=== PATIENT | female | born 1975 | race Caucasian/White ===

== ENCOUNTER → 2021-08-15 09:31 | Outpatient (BNVA) | payer MEDICARE, SELFPAY | PROVIDERS: PCP Nurse Practitioner Family; Visit Provider Nurse Practitioner Family | DX: E13.9 Other specified diabetes mellitus without complications (principal); E55.9 Vitamin D deficiency, unspecified; F41.9 Anxiety disorder, unspecified; F32.A Depression, unspecified; Z13.6 Encounter for screening for cardiovascular disorders | CPT/HCPCS: 80053; 80061; 81003; 82306; 83036; 84443; 85025 ==

== ENCOUNTER → 2023-03-11 09:38 | Outpatient (BNVA) | payer MEDICARE, SELFPAY | PROVIDERS: PCP Family Medicine; Visit Provider Nurse Practitioner | DX: E11.9 Type 2 diabetes mellitus without complications (principal); E78.5 Hyperlipidemia, unspecified; F41.9 Anxiety disorder, unspecified | CPT/HCPCS: 80053; 80061; 83036; 84443; 85025 ==

== ENCOUNTER → 2023-08-25 09:15 | Outpatient (BNVA) | payer MEDICARE, SELFPAY | PROVIDERS: PCP Family Medicine; Referring Provider Nurse Practitioner; Visit Provider Internal Medicine | DX: R00.2 Palpitations (principal) | CPT/HCPCS: 93246 ==

== ENCOUNTER → 2024-04-01 08:41 | Outpatient (BNVA) | payer MEDICARE, SELFPAY | PROVIDERS: PCP Nurse Practitioner Family; Visit Provider Nurse Practitioner Family | DX: E13.9 Other specified diabetes mellitus without complications (principal); E11.9 Type 2 diabetes mellitus without complications | CPT/HCPCS: 80048; 80061; 81000; 83036; 85025 ==

== ENCOUNTER → 2024-07-04 11:48 | Outpatient (BNVA) | payer MEDICARE, SELFPAY | PROVIDERS: PCP Nurse Practitioner Family; Visit Provider Internal Medicine | DX: E13.9 Other specified diabetes mellitus without complications; E78.5 Hyperlipidemia, unspecified; Z79.4 Long term (current) use of insulin | CPT/HCPCS: 99214; 99215 ==

== ENCOUNTER 2024-08-15 08:29 | Outpatient (CLI) | payer MEDICARE, SELFPAY ==
[2024-08-15 09:20] LABS: Estmated Average Glucose 235; Hemoglobin A1C 9.8 % (4.0-6.0)
[2024-08-15 09:26] LABS: Alanine Aminotransferase 19 U/L (0-33); Alkaline Phosphatase 77 U/L (35-105); Aspartate Amino Transferase 18 U/L (0-32); Blood Urea Nitrogen 11 mg/dL (6-20); Calcium 8.9 mg/dL (8.5-10.5); Carbon Dioxide 23 mmol/L (22-29); Chloride 101 mmol/L (98-107); Chol HDL Ratio 3.47 mg/dL (0.0-4.40); Cholesterol 264 mg/dL (0-200); Globulin 3.1 g/dL (1.3-4.6); Glomerular Filtration Rate 107.2 mL/min (90-130); Glucose 173 mg/dL (65-115); HDL Cholesterol 76 mg/dL (60-100); LDL Cholesterol Calculated 174 mg/dL (50-129); LDL HDL Ratio 2.29 RATIO (0.00-3.22); Osmolality Calculated 280 mOsm/kg (285-295); Sodium 133 mmol/L (136-145); Total Bilirubin 0.4 mg/dL (0.15-1.2); Total Protein 7.1 g/dL (6.6-8.7); Triglycerides 68 mg/dL (0-150)
[2024-08-16 12:15] LABS: C-Peptide 0.19 ng/mL (0.80-3.85)
== END 2024-08-15 08:30 | disposition home or self-care (01) ==
LOC: LAB 08:30
PROVIDERS: PCP Nurse Practitioner Family; Visit Provider Internal Medicine
DX: E11.9 Type 2 diabetes mellitus without complications (principal); E78.5 Hyperlipidemia, unspecified
CPT/HCPCS: 36415; 80053; 80061; 83036; 84681; 86337; 86341

== ENCOUNTER → 2024-10-05 10:31 | Outpatient (BNVA) | payer MEDICARE, SELFPAY | PROVIDERS: PCP Nurse Practitioner Family; Visit Provider Internal Medicine | DX: K86.1 Other chronic pancreatitis (principal); E13.9 Other specified diabetes mellitus without complications; E78.5 Hyperlipidemia, unspecified; Z79.4 Long term (current) use of insulin | CPT/HCPCS: 99214 ==

== ENCOUNTER → 2024-11-18 12:30 | Outpatient (BNVA) | payer MEDICARE, SELFPAY | PROVIDERS: PCP Nurse Practitioner Family; Visit Provider Internal Medicine | DX: E13.9 Other specified diabetes mellitus without complications; E78.5 Hyperlipidemia, unspecified | CPT/HCPCS: 99214 ==

== ENCOUNTER → 2025-02-10 09:46 | Outpatient (BNVA) | payer MEDICARE, SELFPAY | PROVIDERS: PCP Nurse Practitioner Family; Visit Provider Internal Medicine | DX: E13.9 Other specified diabetes mellitus without complications (principal); E78.5 Hyperlipidemia, unspecified; J30.89 Other allergic rhinitis; K86.1 Other chronic pancreatitis | CPT/HCPCS: 99214 ==

== ENCOUNTER 2025-05-05 08:15 | Outpatient (CLI) | payer MEDICARE, SELFPAY ==
[2025-05-05 09:38] LABS: Creatinine Urine, Random 63 mg/dL (28-217)
[2025-05-05 09:40] LABS: Microalbum Creatinine Ratio Ur 79 mg/dL (0-20)
[2025-05-05 10:11] LABS: Alanine Aminotransferase 24 U/L (0-33); Albumin Level 4.1 g/dL (3.5-5.2); Alkaline Phosphatase 99 U/L (35-105); Aspartate Amino Transferase 21 U/L (0-32); Blood Urea Nitrogen 15 mg/dL (6-20); Calcium 9.2 mg/dL (8.5-10.5); Carbon Dioxide 22 mmol/L (22-29); Chloride 101 mmol/L (98-107); Cholesterol 260 mg/dL (0-200); Globulin 3.4 g/dL (1.3-4.6); Glucose 257 mg/dL (65-115); HDL Cholesterol 96 mg/dL (60-100); Osmolality Calculated 294 mOsm/kg (285-295); Sodium 137 mmol/L (136-145); Total Protein 7.5 g/dL (6.6-8.7); Triglycerides 64 mg/dL (0-150)
[2025-05-05 10:13] LABS: Anion Gap 18.4 (5-19); Potassium 4.4 mmol/L (3.5-5.1)
[2025-05-05 11:15] LABS: Estmated Average Glucose 206; Hemoglobin A1C 8.8 % (4.0-6.0)
== END 2025-05-05 08:16 | disposition home or self-care (01) ==
PROVIDERS: PCP Nurse Practitioner Family; Visit Provider Internal Medicine
DX: E78.5 Hyperlipidemia, unspecified (principal); E13.9 Other specified diabetes mellitus without complications; J30.89 Other allergic rhinitis; K86.1 Other chronic pancreatitis; L25.9 Unspecified contact dermatitis, unspecified cause
CPT/HCPCS: 36415; 80053; 80061; 82044; 83036

== ENCOUNTER 2025-05-13 19:05 | Emergency (ER) | payer MEDICARE, SELFPAY ==
[2025-05-13 19:08] VITALS: BP 203/68; PULSE 74; RESP 16; TEMP 36.8; O2SAT 97; BMI 31.6
--- OUTSIDE RECORDS SUMMARY | 2025-05-13 19:15 | XMS_ITS | Clinical Summary ---
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 Gender Identity Not on file Sexual Orientation Not on file Plan of Treatment Health Maintenance Due Date Last Done Comments Medicare Annual Wellness 1977 Hepatitis B Vaccines (1 of 3 - 19+ 3-dose series) 1996 Pneumococcal Vaccine: Pediat rics (0 to 5 Years) and At-Risk Patients (6 to 49 Years) (1 of 2 - PCV) 1996 Td, Tdap Vaccines Adult 1996 Pap Smear 1998 Mammogram 2017 Colonoscopy 2022 Influenza Vaccination (#1) 2025 HIB Vaccines Aged Out No longer eligi ble based on patient's age to complete this topic HPV Vaccines Aged Out No longer eligi ble based on patient's age to complete this topic Hepatitis A Vaccines Aged Out No long er eligible based on patient's age to complete this topic IPV Vaccines Aged Out No longer eligi ble based on patient's age to complete this topic Meningococcal Vaccines Aged Out No lo nger eligible based on patient's age to complete this topic RSV Mab Nirsevimab (Beyfortu s) <20 months Aged Out No longer eligible b ased on patient's age to complete this topic Rotavirus Vaccines Aged Out No longer eligible based on patient's age to complete this topic Insurance [facility]
--- OUTSIDE RECORDS SUMMARY | 2025-05-13 19:15 | XMS_ITS | Clinical Summary ---
Author Organization [facility] Address [address] [address] Phone Care Team Providers Care Test Tech Name Role Phone Unavailable Primary Care Provider Unavailabl e Allergies Active Allergy Reactions Criticality Noted Date Comments Sulfa (Sulfonamide Antibiotics) Other (See Comments) 06/02/2021 Mouth ulcers Medications diphenhydrAMINE (Benadryl Allergy) 12.5 mg/5 mL solution Benadryl Allergy Act isaak cetirizine (ZyrTEC) 10 mg tablet every 24 hours. Acti ve insulin aspart U-100 (NovoLOG U-100 Insulin aspart) 100 unit/mL vial Novolog U-100 Insulin aspart 100 unit/mL subcutaneous solution Active pantoprazole (PROTONIX) 40 mg Tablet, Delayed Release (E.C.) pantoprazole 40 mg tablet,delayed release Active Active Problems Problem Noted Date Diagnosed Date Type 1 diabetes mellitus 07/28/2018 Social History Tobacco Use Types Packs/Day Years Used Date Smoking Tobacco: Never Passive Smoke Exposure: Never Smokeless Tobacco: Never Tobacco Cessation:Counseling Given: No Alcohol Use Standard Drinks/Week Comments Never 0 (1 standard drink = 0.6 oz pur e alcohol) Comments No Sex and Gender Information Value Date Recorded Sex Assigned at Not on file Legal Sex Female 11:09 AM CDT Gender Identity Not on file Sexual Orientation Not on file Last Filed Vital Signs Vital Sign Reading Time Taken Comments Blood Pressure 160/68 06/24/2023 1:50 PM CDT Pulse 60 06/24/2023 1:33 PM CDT Temperature 36.9 C (98.5 F) 06/24/2023 1:33 PM CDT Respiratory Rate 18 06/24/2023 1:33 PM CDT Oxygen Saturation 100% 06/24/2023 1:33 PM CDT Inhaled Oxygen Concentration - - Weight 87.7 kg (193 lb 6.4 oz) 06/24/2023 1:33 P M CDT Height 161.3 cm (5' 3.5 ) 06/24/2023 1:33 PM CDT Body Mass Index 33.72 06/24/2023 1:33 PM CDT Plan of Treatment Health Maintenance Due Date Last Done Comments DIABETES ANNUAL RETINAL EXAM 1995 DIABETES HBA1C Q 6 MONTHS 1995 DIABETES MICROALBUMIN ANNUAL SCREEN 1995 LDL CHOLESTEROL ANNUAL 1995 DTAP/TDAP/TD VACCINES (1 - Tdap) 1996 HEPATITIS B VACCINES (1 of 3 - 19+ 3-dose series) 03/27 HPV/Cotest (21-29) 1998 CERVICAL CANCER SCREENING 2007 HPV/Cotest (30-65) 2007 PAP SMEAR 2007 BREAST CANCER SCREENING 2017 COLORECTAL SCREENING 2022 Colorectal Cancer Screening 2022 FIT-DNA Q 3 years 2022 FIT/FOBT Q 1 year 2022 Flex Sig/CT Colonography Q 5 years 2022 DIABETES ANNUAL FOOT EXAM 06/24/2024 06/24/2023 INFLUENZA VACCINE (#1) 2025 Insurance [facility]
[2025-05-13 21:37] VITALS: BP 200/74; PULSE 62; RESP 16; O2SAT 98
--- NOTE | 2025-05-14 00:35 | ED_ITS ---
HPI - Eye Problem General: Chief complaint: Eye Problems Stated complaint: right eye pain, blurry sight Time Seen by Provider: 05/13/25 19:39 Source: patient Mode of arrival: ambulatory Limitations: no limitations History of Present Illness: Patient is a 50-year-old female with past medical history of wet macular degeneration as well as diabetic retinopathy presenting to the emergency department with right eye redness, drainage, and pain beginning last night. It is just her right eye, she sees ophthalmology regularly due to her chronic eye issues but she has never had drainage and redness like this. She states that she thinks it is pinkeye, but does not recall any specific exposure to other individuals with conjunctivitis. She does note that recently she has been working outside more, and she wondered if this was allergic so she has been taking [id number] remedies. Describes her visual changes as mild blurriness, there is no loss of any visual lynn or other concerning symptoms reported. She does arrive with a systolic blood pressure of 203, she states that this is simply whitecoat syndrome and that prior to coming in she took her blood pressure and it was 120/80. No fever, headache, or any other symptoms reported at this time. Denies foreign body sensation or reporting any trauma. She has received injections in the right eye in the past, last being in February. chief complaint: eye pain and eye redness Onset (ago): day(s) Onset description: gradual Duration: constant Location: right eye Eye Symptoms: redness, pain, discharge and blurry vision Mechanism: none Associated symptoms: Denies fever(s), headache(s), nausea, neck pain or vomiting Related Data Previous Rx's ?Medication ?Instructions ?Recorded blood-glucose sensor (Dexcom G6 #3 ea 04/22/23 Sensor device) blood-glucose transmitter (Dexcom #1 ea 04/22/23 G6 Transmitter device) blood-glucose,certified emergency vehicle technician,cont #1 ea 04/22/23 (Dexcom G6 Retail Branch Manager) insulin degludec 200 unit/mL (3 See Rx Instructions .R oute 01/28/24 mL) subcutaneous pen (Tresiba .COMPLEX #9 mL FlexTouch U-200 insulin) fluconazole 100 mg tablet 100 mg PO DAILY PRN yeast (Diflucan) infection #14 tabs alprazolam 0.25 mg tablet 0.25 mg PO DAILY PRN anxiety 30 10/17/24 days #30 tabs glucagon 1 mg solution for 1 mg SUBCUT Q20M PRN hypogl ycemia 10/27/24 injection (Glucagon Emergency Kit) #1 ea insulin lispro 100 unit/mL 50 unit (0.5 mL) continuous 10/31/24 subcutaneous solution (Humalog subcutaneous infusion D AILY #50 mL U-100 Insulin) prednisolone acetate 1 % eye See Rx Instructions ophth almic 11/22/24 drops,suspension (eye) BID 30 days #15 mL tobramycin-dexamethasone 0.3 %-0.1 1 applic ophthalmic (eye) Q8H #3.5 05/13/25 % eye ointment (TobraDex) grams Allergies Allergy/AdvReac Type Severity Reaction Status Date / Time sulfamethoxazole (From Allergy Intermediate sores Verified 02/09/25 16:50 Bactrim) trimethoprim (From Bactrim) Allergy Intermediate sores Verified 02/09/25 16:50 Sulfa (Sulfonamide Allergy breaks Verified 02/09/25 16:50 Antibiotics) mouth out in canker sores Review of Systems General: Reports: 10 or more systems reviewed and unremarkable except in HPI and below Const: Denies: fever(s), chills or fatigue Eyes: Reports: blurry vision, eye discomfort, eye discharge and eye redness ENMT: Denies: throat pain, ear or mastoid pain or nasal discharge Card: Denies: chest pain, palpitations, swelling of feet/ankles or lightheadedness Resp: Denies: dyspnea, productive cough or wheezing GI: Denies: abdominal pain, nausea, vomiting, diarrhea or constipation : Denies: flank pain, difficulty voiding, dysuria or urinary frequency Musc: Denies: neck pain, back pain or joint pain Skin/Breast: Denies: rash Neuro: Denies: headache(s), numbness in extremities or weakness in extremities PFSH ED PFSH: Medical History Tachycardia COVID delivery delivered Sleep apnea Eye problem Lower respiratory infection Environmental and seasonal allergies GERD (gastroesophageal reflux disease) Diabetes 1.5, managed as type 1 Chronic pancreatitis Anxiety Surgical History Hx of hysterectomy Family History Father Postsurgical cardiac pacemaker in situ Total knee replacement status Mother Diabetes Hypertension Social History Smoking and tobacco/nicotine status: never used tobacco/nicotine Second hand smoke exposure: No Alcohol intake: never Substance/Drug Use: never Physical Exam Const: COMMON NORMALS: no acute distress and no limitations GENERAL APPEARANCE: cooperative, comfortable and well developed ORIENTATION/CONSCIOUSNESS: Yes awake HENMT: COMMON NORMALS: normocephalic, atraumatic and hearing grossly normal bilaterally HEAD & SCALP: normocephalic and atraumatic Eye: COMMON NORMALS: Equal, round and reactive pupils present and EOMs intact bilaterally ALIGNMENT: Yes alignment normal PERIORBITAL: periorbital findings normal CONJUNCTIVA: Yes conjunctival abnormal positive right conjunctival injection diffuse and discharge purulent PUPIL: Yes Equal, round and reactive pupils present EOM: Yes EOM abnormal Neck/C-Spine: COMMON NORMALS: full ROM, supple and no JVD Resp: COMMON NORMALS: normal respiratory effort, No retractions, No use of accessory muscles and clear to auscultation bilaterally AUSCULTATION: clear to auscultation bilaterally Cardio: COMMON NORMALS: no JVD, regular rate, regular rhythm, No clicks present (Cardio), No murmurs present (Cardio) and No rub (Cardio) RATE: regular rate RHYTHM: regular rhythm Extremity: COMMON NORMALS: normal to inspection, full ROM and capillary refill normal Skin: COMMON NORMALS: no rashes or lesions noted GENERAL SKIN EXAM: no rashes or lesions noted Course Vital Signs: Vital signs: Vital Signs Temperature 98.3 F 05/13/25 19:08 Pulse Rate 62 05/13/25 21:37 Respiratory Rate 16 05/13/25 21:37 Blood Pressure 200/74 05/13/25 21:37 Pulse Oximetry 98 05/13/25 21:37 Oxygen Delivery Me thod Room Air 05/13/25 19:08 MDM - Eye Problem Medical Decision Making Patient presenting with acute eye redness and pain, with purulent discharge and blurry vision. History of wet macular degeneration as well as diabetic retinop athy, no significant visual changes other than just general blurriness. She receives injections in her eye with ophthalmology, none recent. She is hypertensive on arrival, she states that this is of no concern for her and regularly her blood pressure is high when she is at the doctor and it will normalize when she gets home. It is rechecked prior to discharge and continually high, she states that she does not want to stay for further repeating of this and wants to go home. With her eye, I consulted Dr. Johnson, clinical documentation spec who sees the patient regularly, and reviewed the patient's case and images of her eye. He agrees that this appears to be bacterial in nature and recommends TobraDex. This will be sent to her pharmacy, she will take this as prescribed and return precautions are given to the patient of which she verbalized understanding. No radiology studies performed this visit Discharge Plan Discharge Patient Disposition: Home Clinical Impression: Bacterial conjunctivitis Condition: Stable Prescriptions: New TobraDex 0.3-0.1 % ointment 1 applic ophthalmic (eye) Q8H Qty: 3.5 0RF No Action insulin degludec [Tresiba FlexTouch U-200] 200 unit/mL (3 mL) insulin pen See Rx Instructions .ROUTE .COMPLEX Qty: 9 3RF Dose Instruction: INJECT 15 UNITS SUBCUTANEOUSLY DAILY Rx Instructions: INJECT 26 UNITS SUBCUTANEOUSLY DAILY fluconazole [Diflucan] 100 mg tablet 100 mg PO DAILY PRN (Reason: yeast infection) Qty: 14 2RF (DME) Dexcom G6 Sensor Device See Rx Instructions .Route Qty: 3 5RF Rx Instructions: As directed (DME) Dexcom G6 Retail Branch Manager Misc See Rx Instructions .Route Qty: 1 0RF Rx Instructions: As directed (DME) Dexcom G6 Transmitter Device See Rx Instructions .Route Qty: 1 11RF Rx Instructions: As directed alprazolam 0.25 mg tablet 0.25 mg PO DAILY PRN (Reason: anxiety) 30 Days Qty: 30 1RF Glucagon Emergency Kit (human) 1 mg recon soln 1 mg SUBCUT Q20M PRN (Reason: hypoglycemia) Qty: 1 0RF Rx Instructions: until target blood sugar attained insulin lispro [Humalog U-100 Insulin] 100 unit/mL solution 50 unit continuous subcutaneous infusion DAILY Qty: 50 1RF Rx Instructions: 50 units via insulin pump daily prednisolone acetate 1 % drops,suspension See Rx Instructions ophthalmic (eye) BID 30 Days Qty: 15 5RF Rx Instructions: 4 drops per eye daily ophthalmic (eye) twice a day; Discharge Orders: Discharge ED (Routine); Ordered 05/13/25 Ordered By: Peña Mari Referrals: Gregory Kerns FNP [Primary Care Provider, [facility]] Patient Instructions: Pain Management, Patient Portal & Kim Instructions Activity Restrictions/Additional Instructions: Acute Conjunctivitis Discharge Diagnosis: Acute bacterial conjunctivitis Treatment: Tobramycin-Dexamethasone (TobraDex) ophthalmic suspension Instructions: - Medication Administration: - Instill one drop of TobraDex into the affected eye(s) every 4 to 6 hours. For the first 24?48 hours, dosing may be increased to every 2 hours if symptoms are severe, then decrease frequency as improvement occurs. Do not discontinue therapy prematurely. Shake the bottle well before each use. - Do not use more than one bottle without re-evaluation by an clinical documentation spec. - Avoid touching the dropper tip to any surface, including the eye, to prevent contamination. - Contact lenses should not be worn during treatment, as TobraDex contains benzalkonium chloride, which can be absorbed by soft lenses and may exacerbate infection risk. - Conservative Therapies: - Practice strict hand hygiene: wash hands before and after touching the eyes or applying drops. - Use clean tissues or cotton balls to gently remove discharge from the eyelids and lashes. - Apply cool compresses to the closed eyelids for symptomatic relief if desired, though evidence for efficacy is limited. - Avoid sharing towels, bedding, or personal items to reduce transmission risk. - Ophthalmologic Comorbidities: - Continue all prescribed treatments for wet macular degeneration and diabetic retinopathy as directed by the clinical documentation spec. - Maintain regular follow-up appointments for these chronic conditions, as acute conjunctivitis and its treatment do not replace ongoing disease management. - Monitoring and Precautions: - Blurred vision may occur temporarily after instillation of drops; use caution with activities requiring clear vision. - Prolonged use of topical corticosteroids may increase intraocular pressure, risk of glaucoma, and posterior subcapsular cataract formation. If treatment extends beyond 10 days, intraocular pressure should be monitored. - Steroids may mask or worsen infection; if symptoms do not improve within 48 hours, or if they worsen, prompt re-evaluation is required. - Return Precautions: - Seek immediate medical attention for any of the following: - Marked decrease in vision - Severe or worsening eye pain - Photophobia (sensitivity to light) - New floaters or flashes of light - Persistent or worsening redness or discharge after 48 hours of therapy - Signs of allergic reaction (e.g., swelling, rash, difficulty breathing) - Any symptoms suggestive of complications related to macular degeneration or diabetic retinopathy (e.g., sudden vision loss, new visual distortions) - Additional Notes: - Diagnostic testing is generally not required for typical cases of bacterial conjunctivitis unless the presentation is atypical or unresponsive to therapy. - Antibiotic therapy is indicated for purulent or mucopurulent conjunctivitis, especially in patients with ocular comorbidities. - Avoid ocular decongestants and topical saline, as there is no evidence supporting their efficacy in bacterial conjunctivitis. Follow-up: - Adhere to scheduled ophthalmology appointments for both acute and chronic eye conditions. - If there is any uncertainty regarding medication use or symptom progression, contact the ophthalmology clinic for guidance. Print Language: Frisian Coding Level of Care Code ED Botanical Technical Officer for Dario Melton
== END 2025-05-13 21:39 | disposition home or self-care (01) ==
PROVIDERS: Emergency Provider Physician Assistant; PCP Nurse Practitioner Family
DX: H10.9 Unspecified conjunctivitis (principal); H35.3290 Exudative age-related macular degeneration, unspecified eye, stage unspecified; E11.319 Type 2 diabetes mellitus with unspecified diabetic retinopathy without macular edema; Z79.899 Other long term (current) drug therapy; Z79.4 Long term (current) use of insulin; Z88.2 Allergy status to sulfonamides
CPT/HCPCS: 99283; J9999

== ENCOUNTER → 2025-05-19 10:46 | Outpatient (BNVA) | payer MEDICARE, SELFPAY | PROVIDERS: PCP Nurse Practitioner Family; Visit Provider Internal Medicine | DX: E13.9 Other specified diabetes mellitus without complications (principal); E78.5 Hyperlipidemia, unspecified; K86.1 Other chronic pancreatitis | CPT/HCPCS: 99214 ==